=== PATIENT | male | born 1940 | race African-American/Black ===

== ENCOUNTER 2017-11-03 19:43 | Inpatient (IN) ==
[2017-11-04] MEDS ORDERED: Acetaminophen 325 MG Tablet PO PRN (00:59)
[2017-11-04] MEDS ORDERED: Bisacodyl 10 MG Supp RECTAL PRN (00:59)
[2017-11-04] MEDS ORDERED: Sod Chloride 0.9% Inj 1,000 ML IV.CONT SCH (01:00)
[2017-11-04 02:49] LABS: Hemoglobin 5.6 gm/dL (13.0-17.0)
[2017-11-04] MEDS ORDERED: Sodium Chlor 0.9% Inj 250 ML IV.SIG SCH (04:00)
--- NOTE | 2017-11-04 12:23 | P.HPIM ---
History of Present Illness Service: [facility] Hospitalist Primary Care Physician: Physician [facility] Chief Complaint: Low blood count. Sent by History of Present Illness: 77-year-old male sent to the emergency room by PCP for low H&H. Patient has a history of prostate cancer status post radiation therapy about 15 years ago. He reports that he has been having gross hematuria for about a year. He follows with urologist at [facility]. Previously had cystoscopy. He continued to have intermittent hematuria. For the past couple of weeks he has been having large clots and difficulty with urination. He also reports for the past couple of days he has been more fatigued with dyspnea on exertion which prompted the visit to his doctor's office. 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 He normally has chronic anemia with hemoglobin ranging from 10-12. Hemoccult in the emergency room was negative. The patient is admitted for transfusion and further workup if indicated. He reports that he was on Terazosin in the past but has not been taking that. He used to take iron supplements as well. On my evaluation, the patient's urine is pink. No longer having blood clots. - Diagnosis (1) Gross hematuria (2) History of prostate cancer (3) Radiation adverse effect (4) Hypertension Inpatient Certification: I certify that the inpatient services were ordered in accordance with Medicare regulations governing the order. This includes certification that hospital inpatient services are reasonable and necessary and in the case of services not specified as inpatient-only under 42 CFR 419.22(n), that they are appropriately provided as inpatient services in accordance to with the 2-midnight benchmark under 43 CFR 412.3(e) Estimated Total Length of Stay (Days): 3 Plans for Post Hospital Care: Not yet determined PMFSH - History History Provided By: Patient - Medical History Medical History: Medical History (Last Reviewed 11/04/17 @ 12:22 by Sai Lou MD) Anemia Hypertension Prostate cancer Seizure - Surgical History Surgical History: Surgical History (Last Updated 11/04/17 @ 12:53 by Sai Lou MD) H/O eye surgery - Family History Family History: Family History (Last Updated 11/04/17 @ 12:53 by Sai Lou MD) Other Family history non-contributory - Tobacco History Second Hand Smoke Exposure: No Tobacco Use In Past 30 Days: No Smoking Status: Former smoker - Alcohol History How Often Do You Have a Drink Containing Alcohol: 2 to 3 times a week - Substance Use History Substance History: No History of Abuse - Travel History Recent Travel in the [place] Within the Last 8 Weeks: No Recent Travel Out of the Country Within the Last 8 Weeks: No Medications and Allergies Active Medications: Active Medications Acetaminophen (Tylenol) 650 mg PO Q4H PRN PRN Reason: Temp > 100.4 Al Hydroxide/Mg Hydroxide (Milk Of Magnesia Liq) 30 ml PO Q12H PRN PRN Reason: Mild Constipation Bisacodyl (Dulcolax Supp) 10 mg RECTAL DAILY PRN PRN Reason: SEVERE CONSITIPATION Sodium Chloride (Ns Inj) 1,000 mls @ 100 mls/hr IV.CONT .Q10H TAMMY Last Admin: 11/04/17 06:11 Dose: 100 mls/hr Sodium Chloride (Ns Inj) 250 mls @ 15 mls/hr IV.SIG ONCE TAMMY Stop: 11/04/17 20:39 Lactulose (Lactulose Liq) 30 ml PO DAILY PRN PRN Reason: SEVERE CONSITIPATION Ondansetron HCl (Zofran Inj) 4 mg IV.PUSH Q6H PRN PRN Reason: NAUSEA OR VOMITING Sennosides (Senokot) 17.2 mg PO Q12H PRN PRN Reason: Moderate Constipation Allergies Allergy/AdvReac Type Severity Reaction Status Date / Time No Known Allergies Allergy Unverified 11/03/17 20:16 Home Medications Medication Instructions Recorded Confirmed Type metoprolol succinate 12.5 mg PO DAILY 11/03/17 11/03/17 History Exam Vital signs: Vital Signs 11/04/17 02:03 11/04/17 02:12 11/04/17 04:00 Temperature 98.2 F 98.2 F Pulse Rate 82 82 82 Respiratory Rate 20 16 Blood Pressure 116/62 118/66 Pulse Oximetry 98 98 11/04/17 07:09 11/04/17 07:26 11/04/17 08:00 Temperature 98.7 F 98.7 F 98.7 F Pulse Rate 80 83 76 Respiratory Rate 17 19 19 Blood Pressure 113/69 117/63 114/76 Pulse Oximetry 11/04/17 09:57 11/04/17 10:15 Temperature 98.7 F 99.0 F Pulse Rate 81 96 H Respiratory Rate 25 H 24 Blood Pressure 134/76 148/78 H Pulse Oximetry Intake & Output 11/03/17 11/04/17 11/04/17 18:59 06:59 18:59 Intake Total 425 / 425 Output Total 500 / 500 Balance -500 / -500 425 / 425 Weight 68.3 kg Intake: Other Rbc As-3 Leukoreduced Unit 25 / [id number] Intake (Blood Product) Amt 400 / 400 Rbc As-3 Leukoreduced Unit 0 / 0 [id number] Rbc As-3 Leukoreduced Unit 400 / 400 [id number] Output: Urine 500 / 500 Other: Date of Last Bowel Movement 11/03/17 Weight On Admission 68.3 kg Narrative: CONSTITUTIONAL/GENERAL: This is an adequately nourished patient, in no apparent distress. Vital signs reviewed SKIN: No jaundice, rashes, or concerning lesions. Not diaphoretic. HEAD: Atraumatic. Normocephalic. EYES: Pupils equal and round and reactive. Extra ocular motions are intact. No scleral icterus. No injection or drainage. ENT: Hearing grossly normal. Nose without drainage. Throat without visible erythema, exudates, masses, or lesions. NECK: Trachea midline. Neck is supple, non-tender. No palpable thyroid enlargement or nodularity. CARDIOVASCULAR: Normal rate and regular rhythm without murmurs, gallops, or rubs. No JVD. Peripheral pulses 2+ and symmetric. RESPIRATORY/CHEST: Symmetric, unlabored respirations. Breath sounds equal and clear to auscultation bilaterally. No wheezes, crackles, rales, or rhonchi. GASTROINTESTINAL: Abdomen soft, non-tender, non-distended. No hepato- splenomegaly, or palpable masses. No guarding. Bowel sounds present. MUSCULOSKELETAL: Extremities without clubbing, cyanosis, or edema. No joint tenderness or effusion noted. No calf tenderness. No mottling or clubbing. NEUROLOGICAL: Awake and alert. Motor and sensory grossly within normal limits. Follows commands. Move all extremities spontaneously. No focal deficits. PSYCHIATRIC: No obvious mood problems. No apparent hallucinations or other psychotic thought process. Results - Labs CBC & Chem 7: 11/04/17 13:55 Labs: Short CBC 08/07/18 Range/Units 02:34 Hgb 5.6 L* (13.0-17.0) gm/dL Hct 17.0 L* (39.0-51.0) % Caprini VTE Risk Assessment Caprini VTE Risk Assessment: Moderate/High Risk (score >= 2) VTE Pharmacological Exception Reason: Active bleeding Caprini Risk Assessment Model: Point Value = 1 Point Value = 2 Point Value = 3 Point Value = 5 Age 41-60 Minor surgery BMI > 25 kg/m2 Swollen legs Varicose veins or History of unexplained or recurrent spontaneous Oral contraceptives or hormone replacement Sepsis (< 1 month) Serious lung disease, including pneumonia (< 1 month) Abnormal pulmonary function Acute myocardial infarction Congestive heart failure (< 1 month) History of inflammatory bowel disease Medical patient at bed rest Age 61-74 Arthroscopic surgery Major open surgery (> 45 min) Laparoscopic surgery (> 45 min) Malignancy Confined to bed (> 72 hours) Immobilizing plaster cast Central venous access Age >= 75 History of VTE Family history of VTE Factor V Leiden Prothrombin [id number] Lupus anticoagulant Anticardiolipin antibodies Elevated serum homocysteine Heparin-induced thrombocytopenia Other congenital or acquired thrombophilia Stroke (< 1 month) Elective arthroplasty Hip, pelvis, or leg fracture Acute spinal cord injury (< 1 month) Prophylaxis Regimen: Total Risk Factor Score Risk Level Prophylaxis Regimen 0-1 Low Early ambulation 2 Moderate Order ONE of the following: *Sequential Compression Device (SCD) *Heparin 5000 units SQ BID 3-4 Higher Order ONE of the following medications: *Heparin 5000 units SQ TID *Enoxaparin/Lovenox 40 mg SQ daily (WT < 150 kg, CrCl > 30 mL/min) *Enoxaparin/Lovenox 30 mg SQ daily (WT < 150 kg, CrCl > 10-29 mL/min) *Enoxaparin/Lovenox 30 mg SQ BID (WT < 150 kg, CrCl > 30 mL/min) AND/OR *Sequential Compression Device (SCD) 5 or more Highest Order ONE of the following medications: *Heparin 5000 units SQ TID (Preferred with Epidurals) *Enoxaparin/Lovenox 40 mg SQ daily (WT < 150 kg, CrCl > 30 mL/min) *Enoxaparin/Lovenox 30 mg SQ daily (WT < 150 kg, CrCl > 10-29 mL/min) *Enoxaparin/Lovenox 30 mg SQ BID (WT < 150 kg, CrCl > 30 mL/min) AND *Sequential Compression Device (SCD) Assessment and Plan - Assessment (1) Gross hematuria Code(s): R31.0 - Gross hematuria Status: Acute (2) History of prostate cancer Code(s): Z85.46 - Personal history of malignant neoplasm of prostate Status: Acute (3) Radiation adverse effect Code(s): T66.XXXA - Radiation sickness, unspecified, initial encounter Status : Acute (4) Hypertension Code(s): I10 - Essential (primary) hypertension Status: Acute - Plan 77-year-old male with history of prostate cancer and radiation therapy who has been having intermittent hematuria for the past year presented with symptomatic anemia. 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 Symptomatic anemia: Patient presented with hemoglobin of 5.7. This is secondary to acute on chronic blood loss from hematuria. -2 units of PRBC transfusion ongoing. -will repeat a posttransfusion H&H - Hematuria seems to have significantly improved and urine is pink in color. Gross hematuria/urinary retention: Likely secondary to radiation for previous prostate cancer. -He has good follow-up with urologist at the [facility]. previously had cystoscopy. -Advised follow-up with urology at the [facility]. -This is improving. Urine pinkish to clear. -Counseled the patient to drink plenty of water. -Restart Terazosin - Monitor I/O HTN: Continue Metoprolol Discharge Planning: Patient's hemoglobin improved after blood transfusion. He is stable for discharge. Discharge patient to home Condition on discharge: Improved Regular Diet as tolerated Ad Constance activity Rx written: Per med rec Follow-up with primary care physician H&P: Quality - VTE Deep Vein Thrombosis/Pulmonary Embolism Present on Admission: No
[2017-11-04] MEDS ORDERED: Ferrous Sulfate 325 MG Tablet PO SCH (13:00)
[2017-11-04 14:12] LABS: Hematocrit 30.4 % (39.0-51.0); Hemoglobin 9.6 gm/dL (13.0-17.0)
[2017-11-04 23:16] VITALS: BP 119/70; PULSE 92; RESP 16; TEMP 98.9; O2SAT 98
== END 2017-11-04 16:15 | disposition home or self-care (01) ==
LOC: PHICU 11-04 01:35 → PHEDDLT 11-04 01:35
PROVIDERS: ADMIT Family Medicine; ATTEND Family Medicine